=== PATIENT | female | born 1975 | race Caucasian/White ===

== ENCOUNTER 2017-08-08 05:41 | Day surgery (SDC) | payer OTHER ==
[~2017-08-08] VITALS: Ht 165.1 cm; Wt 70.2 kg
[2017-08-08 06:42] VITALS: Ht 165.1 cm; Wt 70.2 kg
[2017-08-08 07:07] VITALS: BP 120/76; PULSE 52; RESP 13
[2017-08-08] MEDS ORDERED: FENTAnyl 50 MCG/ML VIAL ONE (07:37)
[2017-08-08] MEDS ORDERED: MIDAZOLAM 1 MG/ML 2 ML INJ ONE ×2 (07:38)
--- NOTE | 2017-08-08 07:44 | OPPN ---
Date/Time of Note Date/Time of Note DATE: 08/08/17 TIME: 07:36 Operative Report Preoperative Diagnosis Abdominal pain Postoperative Diagnosis Hiatal hernia and gastroesophageal reflux disease Gastritis with erosions Operation/Procedure Performed Esophagogastroduodenoscopy and biopsy Surgeon see signature line registered dental assistant None Anesthesia: moderate sedation Estimated blood loss: none Transfusion Required none Specimen Gastric mucosal Grafts/Implants none Complications none SONIA MANRIQUE MD Aug 08, 2017 07:44
[2017-08-08 07:59] VITALS: BP 97/66; RESP 20
--- NOTE | 2017-08-08 13:19 | GILP ---
DATE OF PROCEDURE: 08/08/2017 NAME OF PROCEDURE: Esophagogastroduodenoscopy and biopsy. SURGEON: Dr. Abebe. PREOPERATIVE DIAGNOSIS: Abdominal pain. POSTOPERATIVE DIAGNOSES 1. Gastritis with erosions. 2. Gastric mucosal biopsies were taken for Helicobacter pylori test. 3. Hiatal hernia and gastroesophageal reflux disease. INDICATION FOR THE PROCEDURE: Ms. Merry Parry is a 41-year-old female patient who had upper abdomin al pain, not responding to therapy. The [facility] was [facility] The procedure and possible complications were well explained to the patient, she understood and cons ented to the procedure. DESCRIPTION OF PROCEDURE: Under the influence of fentanyl and Versed, the gastroscope was carefully introduced into the esophagus and under direct vision it was advanced through the stomach and throu gh the pylorus into the duodenal bulb and descending duodenum. FINDINGS: ESOPHAGUS: The patient had hiatal hernia and gastroesophageal reflux disease. STOMACH: She had gastritis with erosions. Gastric mucosal biopsies were taken for H. pylori test. DUODENUM: Normal. She tolerated the procedure very well and there was no complication from the procedure. At the end of the procedure, she was awake with stable vital signs and she was discharged home to the care of [facility]. IMPRESSION: Please see postoperative diagnoses. PLAN: 1. Omeprazole 40 mg p.o. q.a.m. 2. Await H. pylori test report. Dictated By: SONIA DONIS/VALENCIA Conf#: [id number] DID#: [id number]
== END 2017-08-08 10:33 | disposition home or self-care (01) ==
LOC: GIL 05:41
PROVIDERS: ATTEND Internal Medicine Gastroenterology
DX: K29.60 Other gastritis without bleeding (principal); K44.9 Diaphragmatic hernia without obstruction or gangrene
CPT/HCPCS: 43239; 87081; J2250; J3010; Z7610

== ENCOUNTER 2018-08-21 20:38 | Inpatient (IN) | END 2018-08-23 18:55 | disposition home or self-care (01) | DRG 807 ==